=== PATIENT | male | born 1985 | race Caucasian/White ===

== ENCOUNTER 2024-06-04 00:48 | Emergency (ER) | payer BC ==
[~2024-06-04] VITALS: Ht 177.8 cm; Wt 95.3 kg
[2024-06-04 00:58] VITALS: BP_SYST 139; PULSE 71; RESP 18; TEMP 97.9; O2SAT 95
[2024-06-04 02:42] VITALS: BP_SYST 139; PULSE 71; RESP 18; TEMP 97.9; O2SAT 95
== END 2024-06-04 02:42 | disposition home or self-care (01) ==
LOC: SED 00:48
DX: S91.114A Laceration without foreign body of right lesser toe(s) without damage to nail, initial encounter (principal); W10.8XXA Fall (on) (from) other stairs and steps, initial encounter; Y93.89 Activity, other specified; Y92.89 Other specified places as the place of occurrence of the external cause; Y99.8 Other external cause status
CPT/HCPCS: 99283